=== PATIENT | male | born 1980 ===

== ENCOUNTER 2021-02-06 14:14 | Emergency (ER) | payer MEDICAID, SELFPAY ==
[2021-02-06] VITALS (18 sets, daily range): BP systolic 128–185; BP diastolic 71–115; PULSE 72–111; RESP 12–16; TEMP 37.1; O2SAT 92–100; BMI 23.6
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
[2021-02-06] MEDS: SODIUM CHLORIDE 0.9% 1,000 ML 1000 ML IV ×2 (14:32→18:14)
[2021-02-06 14:33] LABS: Add Manual Diff / Slide Review NO; Basophils Absolute Auto 100 /uL (0-100); Basophils Percent Auto 0.8 % (0-2); Eosinophils Absolute Auto 100 /uL (0-450); Eosinophils Percent Auto 0.7 % (2-4); Hematocrit 36.4 % (41-53); Hemoglobin 11.6 g/dL (13.5-17.5); Lymphocytes Absolute Auto 1700 /uL (1100-4500); Lymphocytes Percent Auto 19.8 % (25-40); Mean Corpuscular Hemoglobin 24.6 PG (26-34); Monocytes Absolute Auto 900 /uL (0-900); Monocytes Percent Auto 10.3 % (3-14); Neutrophils Absolute Auto 5800 /uL (1500-7000); Neutrophils Percent Auto 68.4 % (50-75); Platelet Count 486 X10^3/uL (150-400); Red Blood Cell Count 4.73 X10^6/uL (4.5-5.9); Red Cell Distribution Width 14.8 % (11.6-14.8); White Blood Cell Count 8.4 X10^3/uL (4.5-11.0)
[2021-02-06] MEDS: LORazepam 2 MG/ML INJ 1 MG IV (14:33)
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
[2021-02-06 14:43] LABS: Acetaminophen < 10 ug/mL (10-30); Alanine Aminotransferase 16 IU/L (<50); Albumin 4.5 g/dL (3.5-5.0); Alkaline Phosphatase 123 U/L (38-126); Aspartate Aminotransferase 32 IU/L (17-59); BUN Creatinine Ratio 19.1 (6-22); Bilirubin Total 0.8 mg/dL (0.2-1.3); Blood Urea Nitrogen 18 mg/dL (9-20); Calcium 9.6 mg/dL (8.4-10.2); Carbon Dioxide 23 mmol/L (22-32); Chloride 107 mmol/L (98-107); Estimated Glomerular Filt Rate > 60.0 mL/min (>60); Ethanol (ETOH) < 10 mg/dL; Globulin 4.4 g/dL (1.7-4.1); Glucose 141 mg/dL (70-100); HEMOLYSIS < 15 (0-50); Potassium 3.6 mmol/L (3.4-5.1); Salicylate < 1.0 mg/dL (<20); Sodium 141 mmol/L (137-145); Total Protein 8.9 g/dL (6.3-8.2)
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
[2021-02-06 14:57] LABS: COVID19 -Nasal RAPID Negative (Negative)
[2021-02-06 15:01] LABS: Free T4, Direct Thyroxine 1.18 ng/dL (0.78-2.19)
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
--- NOTE | 2021-02-06 15:12 | PC.NURSE ---
patient's belongings were searched by [employer]al[employer] kearns #[id number]. He found multiple capped needles which he disposed of in the sharps bin. His belongings were labeled and put away in his locker.
[2021-02-06 15:15] LABS: Thyroid Stimulating Hormone 0.676 uIU/mL (0.47-4.68)
--- NOTE | 2021-02-06 15:30 | CM.SWNOTE ---
DISTANCE LEARNING COORDINATOR Note DISTANCE LEARNING COORDINATOR consult received. Placed call to Dr Estes, patient is not medically clear and remains intoxicated, meth suspected, multiple needles found in patient's belongings per RN note. Patient is not appropriate for DISTANCE LEARNING COORDINATOR assessment at this time. Patient may inevitably be a candidate for detainment, [facility]. ED DISTANCE LEARNING COORDINATOR Steffany returns tomorrow 8.2.21. ED staff aware. JW
[2021-02-06 22:05] LABS: Bacteria Urine None Seen; WBC Urine None Seen (0-5/HPF)
[2021-02-06 22:07] LABS: Appearance Urine UA CLEAR; Bilirubin Urine UA NEGATIVE (NEGATIVE); Color Urine UA YELLOW; Glucose Urine UA NEGATIVE (Negative); Ketones Urine UA NEGATIVE (NEGATIVE); Leukocyte Esterase Urine UA NEGATIVE (NEGATIVE); Nitrite Urine UA NEGATIVE (Negative); Occult Blood Urine UA 3+ (Negative); Protein Urine UA 2+ (Negative); Specific Gravity Urine UA 1.025 (1.000-1.035); Urobilinogen Urine UA 0.2 E.U./dL (0.2)
[2021-02-06 22:14] LABS: UR Morphine/Opiate cutoff 300 Positive (Negative); Ur Creatinine 50 (Normal); Urine Amphetamines Positive (Negative); Urine Cocaine Negative (Negative); Urine Methamphetamines Positive (Negative); Urine Tetrahydrocannabinol Negative (Negative); Urine pH 5 (Normal)
[2021-02-06 22:15] LABS: Urine Barbiturates Negative (Negative); Urine Benzodiazepines Negative (Negative); Urine MDMA Positive (Negative); Urine Methadone Negative (Negative); Urine Oxycodone Negative (Negative); Urine Phencyclidine Negative (Negative); Urine Tricyclic Antidepressant Negative (Negative)
--- NOTE | 2021-02-06 22:44 | PC.NURSE ---
patient is alert and oriented to person place time and situation. He is requesting that he leave the ER tonight. Dr Ontiveros gave him the option to stay the night but he declined.
[2021-02-06 22:51] LABS: Culture Indicated Urine Cult Not Indicated; RBC Urine 5-10/HPF (0-5/HPF)
== END 2021-02-06 23:03 | disposition home or self-care (01) ==
PROVIDERS: Emergency Medicine; Emergency Provider Emergency Medicine
DX: F19.10 Other psychoactive substance abuse, uncomplicated (principal); R00.0 Tachycardia, unspecified; Z20.822 Contact with and (suspected) exposure to COVID-19
CPT/HCPCS: 36415; 80053; 80305; 80320; 80329; 81001; 84439; 84443; 85025; 87635; 96361; 96374; 99284; C9803; G0480; J2060